=== PATIENT | male | born 2005 | race Caucasian/White ===

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

== ENCOUNTER 2025-07-05 21:34 | Emergency (ER) | payer MEDICAID ==
[~2025-07-05] VITALS: Ht 180.3 cm; Wt 67.2 kg
[2025-07-06] VITALS: TEMP 97.4
[2025-07-06 03:07] VITALS: BP 139/78; O2SAT 99
[2025-07-06] MEDS ORDERED: NAPR-837 PO (03:14)
== END 2025-07-06 03:25 | disposition home or self-care (01) ==
LOC: M ED 21:34
DX: N50.819 Testicular pain, unspecified (principal); J30.89 Other allergic rhinitis